=== PATIENT | female | born 1995 | race Caucasian/White ===

== ENCOUNTER 2017-05-15 19:11 | Emergency (ER) | payer OTHER ==
--- NOTE | 2017-05-15 20:29 | ER Document Report ---
ED Medical Screen (RME) - General Chief Complaint: Low Back Pain Stated Complaint: LOW RIGHT BACK PAIN Time Seen by Provider: 05/15/17 20:26 Mode of Arrival: Ambulatory Information source: Patient Notes: 22 yo female presents to ed for right lower back pain started yesterday and worse today. Gets a lot of UTIs and is worried about this, LMP 04/18/17. Was positive for chlamydia on may 03 took antibiotics azithromycin 1000mg. discharge never went away. I have greeted and performed a rapid initial assessment of this patient. A comprehensive ED assessment and evaluation of the patient, analysis of test results and completion of medical decision making process will be conducted by an additional ED providers. - Related Data Allergies/Adverse Reactions: No Known Allergies Allergy (Unverified 05/15/17 19:15)
[2017-05-15 21:31] LABS: APPEARANCE,URINE CLEAR; BILIRUBIN,URINE NEGATIVE (NEGATIVE); COLOR,URINE YELLOW; GLUCOSE, URINE NEGATIVE (NEGATIVE); KETONES,URINE NEGATIVE (NEGATIVE); LEUKOCYTE ESTERASE,URINE NEGATIVE (NEGATIVE); NITRITE,URINE NEGATIVE (NEGATIVE); PROTEIN,URINE NEGATIVE (NEGATIVE); URINE SPECIFIC GRAVITY 1.016; UROBILINOGEN,URINE NEGATIVE mg/dL (<2.0)
[2017-05-15 22:33] LABS: CHLAM PCR DETECTED (NOT DETECT); GON PCR NOT DETECTED (NOT DETECT)
[2017-05-15] MEDS ORDERED: LIDOCAINE 1% INJ-PF (10 MG/ML) 30 ML SDV INFIL ONE (23:32)
[2017-05-15] MEDS ORDERED: AZITHROMYCIN 250 MG TABLET PO ONE (23:32)
[2017-05-15] MEDS ORDERED: CEFTRIAXONE INJ 250 MG VIAL IM ONE (23:32)
[2017-05-15] MEDS ORDERED: IBUPROFEN 600 MG TABLET PO ONE (23:35)
[2017-05-15] MEDS ORDERED: LIDOCAINE 5% (700 MG) TRANSDERMAL ADH..PATCH TP ONE (23:35)
[2017-05-15] MEDS ORDERED: ACETAMINOPHEN 325 MG TABLET PO ONE (23:35)
--- NOTE | 2017-05-15 23:35 | ER Document Report ---
ED General - General Chief Complaint: Low Back Pain Stated Complaint: LOW RIGHT BACK PAIN Time Seen by Provider: 05/15/17 20:26 Mode of Arrival: Ambulatory Notes: Patient is a 22-year-old female with a past medical history of pyelonephritis who presents with 24 hours of right-sided flank pain. She describes this as a dull, constant throbbing pain to her right flank. No radiation of the pain. She has been trying [id number] pain medications without any improvement. Nothing worsens the pain. She states this feels similar to when she has had kidney infections in the past. She has not seen her primary doctor regarding today's concerns. She denies any fever or constitutional symptoms. No pleuritic pain or shortness of breath. No use of supplemental estrogen or control pills. She denies any history of DVT or pulmonary embolus. - Related Data Allergies/Adverse Reactions: No Known Allergies Allergy (Unverified 05/15/17 19:15) Past Medical History - General Information source: Patient - Social History Smoking Status: Never Smoker Chew tobacco use (# tins/day): No Frequency of alcohol use: None Drug Abuse: None Lives with: Spouse/Significant other Family History: Reviewed & Not Pertinent Patient has suicidal ideation: No Patient has homicidal ideation: No Renal/ Medical History: Denies: Hx Peritoneal Dialysis Review of Systems - Review of Systems Notes: Constitutional: Negative for fever. HENT: Negative for sore throat. Eyes: Negative for visual changes. Cardiovascular: Negative for chest pain. Respiratory: Negative for shortness of breath. Gastrointestinal: Positive for right flank pain Genitourinary: Positive for dysuria. Musculoskeletal: Negative for back pain. Skin: Negative for rash. Neurological: Negative for headaches, weakness or numbness. 10 point ROS negative except as marked above and in HPI. Physical Exam - Vital signs Vitals: Temp Pulse BP Pulse Ox 98.8 F 79 118/74 98 05/15/17 19:17 05/15/17 19:17 05/15/17 19:17 05/15/17 19:17 Interpretation: Normal Notes: PHYSICAL EXAMINATION: GENERAL: Well-appearing, well-nourished and in no acute distress. HEAD: Atraumatic, normocephalic. EYES: Pupils equal round and reactive to light, extraocular movements intact, sclera anicteric, conjunctiva are normal. ENT: nares patent, oropharynx clear without exudates. Moist mucous membranes. NECK: Normal range of motion, supple without lymphadenopathy LUNGS: Breath sounds clear to auscultation bilaterally and equal. No wheezes rales or rhonchi. HEART: Regular rate and rhythm without murmurs ABDOMEN: Soft, nontender, normoactive bowel sounds. No guarding, no rebound. Mild right CVA tenderness to palpation EXTREMITIES: Normal range of motion, no pitting or edema. No cyanosis. NEUROLOGICAL: No focal neurological deficits. Moves all extremities spontaneously and on command. PSYCH: Playing on her cell phone, appears in no distress SKIN: Warm, Dry, normal turgor, no rashes or lesions noted. Course - Re-evaluation Re-evalutation: 05/15/17 23:34 Presentation is most consistent with acute pyelonephritis. Urinalysis is consistent with urinary tract infection. CVA tenderness is present on exam. I do not suspect an acute appendicitis, biliary pathology, pancreatitis, intra- abdominal abscess, or tubo-ovarian abscess based on history and examination. I do not suspect an acute pulmonary embolus as patient denies any shortness of breath or pleuritic pain and is PERC criteria negative. Patient does continue to test positive for chlamydia and I have encouraged abstinence until both her and her have been treated and cleared of the infection. She has received ceftriaxone IM as well as azithromycin here in the emergency department. She will be sent home on a seven-day course of cephalexin. Patient is able to tolerate oral intake without difficulty. At this time will discharge with return precautions and follow-up recommendations. Verbal discharge instructions given a the bedside and opportunity for questions given. Medication warnings reviewed. Patient is in agreement with this plan and has verbalized understanding of return precautions and the need for primary care follow-up in the next 24-72 hours. - Vital Signs Vital signs: Temp Pulse Resp BP Pulse Ox 98.5 F 89 127/76 H 97 05/15/17 23:41 05/15/17 23:41 05/15/17 23:41 05/15/17 23:41 - Laboratory Laboratory results interpreted by me: 05/15/17 20:40 Chlamydia DNA (PCR) DETECTED H Discharge - Discharge Clinical Impression: Right flank pain, Pyelonephritis, Chlamydia Condition: Good Disposition: HOME, SELF-CARE Additional Instructions: You have been diagnosed with a condition called pyelonephritis which is an infection involving your kidneys and bladder. You have been given a dose of antibiotics here in the emergency department to help begin to treat this infection. Your also being sent home on antibiotics. Please start taking these later on today when you fill the prescription. Complete the course even if you feel better. Please return if you have persistent vomiting, pass out, have worsening pain, become unable to tolerate fluids, or have any other symptoms that are concerning to you. Please follow-up with your primary care physician in the next 24-48 hours. You need to use protection every time you have sex. Failure to do so can result in transmission of infections or unintended . You have been treated for an sexually transmitted infection (STI) today. All of your partners should be tested and treated as they are also likely to be infected. Please return if you develop abdominal pain, fever, persistent vomiting, or any other symptoms that are concerning to you. Prescriptions: Cephalexin Monohydrate [Keflex 500 mg Capsule] 500 mg PO Q6H 7 Days capsule Referrals: SATHYA WARD MD [Primary Care Provider] - Follow up as needed
[2017-05-15 23:42] VITALS: BP 127/76
== END 2017-05-16 00:22 | disposition home or self-care (01) ==
LOC: ER 19:11
DX: N12 Tubulo-interstitial nephritis, not specified as acute or chronic (principal); A74.9 Chlamydial infection, unspecified; R10.9 Unspecified abdominal pain; M54.5 Low back pain; R30.0 Dysuria
CPT/HCPCS: 99284; 96372; 36415; 87086; 81025; 87088; 81001; 87186; 87491; 87591; J3490; J0696

== ENCOUNTER 2017-06-20 21:13 | Emergency (ER) | payer OTHER ==
[2017-06-20 22:17] LABS: APPEARANCE,URINE SLIGHTLY-CLOUDY; BILIRUBIN,URINE NEGATIVE (NEGATIVE); COLOR,URINE YELLOW; GLUCOSE, URINE NEGATIVE (NEGATIVE); KETONES,URINE NEGATIVE (NEGATIVE); LEUKOCYTE ESTERASE,URINE NEGATIVE (NEGATIVE); NITRITE,URINE NEGATIVE (NEGATIVE); PROTEIN,URINE NEGATIVE (NEGATIVE); UROBILINOGEN,URINE NEGATIVE mg/dL (<2.0)
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
[2017-06-20 23:35] LABS: CHLAM PCR NOT DETECTED (NOT DETECT); GON PCR NOT DETECTED (NOT DETECT)
[2017-06-20 23:44] LABS: RBCS (WET MOUNT) RARE RBCS SEEN; T.VAGINALIS (WET MOUNT) NO TRICHOMONAS SEEN; WBCS (WET MOUNT) RARE WBCS SEEN; YEAST (WET MOUNT) NO YEAST SEEN
[2017-06-21 01:37] VITALS: BP 107/76
--- NOTE | 2017-06-21 01:52 | RADIOLOGY REPORT (SQ) ---
EXAM DESCRIPTION: U/S OB TRANSVAG W/DOPPLER CLINICAL HISTORY: 22 years, Female, pain, positive COMPARISON: None. TECHNIQUE: Transvaginal LIMITATIONS: None. FINDINGS: No intrauterine gestation identified. 8 cm uterus, 2.5 cm cervical length, 2.1 cm thickness of the endometrial stripe, Nabothian cysts. 3.1 cm right ovary, 3.7 cm left ovary, likely 1.4 cm dominant follicle or corpus luteum of the left ovary appear of normal size, shape, echotexture, and vascularity. No significant free fluid. IMPRESSION: No intrauterine gestation identified. Differential diagnosis includes occult early viable gestation, gestational loss, and occult ectopic gestation. Recommend 48 to 72 hour laboratory/sonographic surveillance.
== END 2017-06-21 01:40 | disposition home or self-care (01) ==
LOC: ER 21:13
DX: Z34.01 Encounter for supervision of normal first pregnancy, first trimester (principal); N89.8 Other specified noninflammatory disorders of vagina
CPT/HCPCS: 36415; 76817; 81001; 81025; 84702; 84703; 87210; 87491; 87591; 93976; 99284

== ENCOUNTER 2019-04-11 05:57 | Emergency (ER) | payer OTHER ==
[2019-04-11 08:47] LABS: ABSOLUTE EOSINOPHILS # (AUTO) 0.1 10^3/uL (0.0-0.6); ABSOLUTE LYMPHOCYTES (AUTO) 2.6 10^3/uL (0.5-4.7); ABSOLUTE MONOCYTES (AUTO) 0.4 10^3/uL (0.1-1.4); ABSOLUTE NEUT (AUTO) 2.1 10^3/uL (1.7-8.2); BASOPHILS % (AUTO) 0.9 % (0-2); EOSINOPHILS % (AUTO) 1.9 % (0-6); HEMATOCRIT 36.9 % (36.0-47.0); HEMOGLOBIN 12.8 g/dL (12.0-15.5); LYMPHOCYTES % (AUTO) 50.3 % (13-45); MEAN CORPUSCULAR HEMOGLOBIN 29.6 pg (27.0-33.4); MEAN CORPUSCULAR HGB CONC 34.6 g/dL (32.0-36.0); MEAN CORPUSCULAR VOLUME 86 fl (80-97); MONOCYTES % (AUTO) 7.2 % (3-13); PLATELET COUNT 325 10^3/uL (150-450); RED BLOOD COUNT 4.31 10^6/uL (3.72-5.28); RED CELL DISTRIBUTION WIDTH 12.1 % (11.5-14.0); SEGMENTED NEUTROPHILS % (AUTO) 39.7 % (42-78); TOTAL CELLS COUNTED % (AUTO) 100 %; WHITE BLOOD COUNT 5.2 10^3/uL (4.0-10.5)
[2019-04-11 09:09] LABS: ALBUMIN 4.9 g/dL (3.5-5.0); ALKALINE PHOSPHATASE 77 U/L (38-126); ANION GAP 14 (5-19); ASPARTATE AMINO TRANSFERASE 19 U/L (14-36); BILIRUBIN,DIRECT 0.3 mg/dL (0.0-0.4); BILIRUBIN,TOTAL 0.3 mg/dL (0.2-1.3); BLOOD UREA NITROGEN 16 mg/dL (7-20); CALCIUM 9.8 mg/dL (8.4-10.2); CARBON DIOXIDE 26 mmol/L (22-30); CHLORIDE 103 mmol/L (98-107); GLUCOSE 111 mg/dL (75-110); POTASSIUM 3.7 mmol/L (3.6-5.0); TOTAL PROTEIN 8.3 g/dL (6.3-8.2)
[2019-04-11 09:21] LABS: INTERNATIONAL RATION (INR) 0.99
[2019-04-11 09:28] LABS: APPEARANCE,URINE SLIGHTLY-CLOUDY; BILIRUBIN,URINE NEGATIVE (NEGATIVE); COLOR,URINE YELLOW; GLUCOSE, URINE NEGATIVE (NEGATIVE); KETONES,URINE NEGATIVE (NEGATIVE); LEUKOCYTE ESTERASE,URINE NEGATIVE (NEGATIVE); NITRITE,URINE NEGATIVE (NEGATIVE); PROTEIN,URINE NEGATIVE (NEGATIVE); URINE SPECIFIC GRAVITY 1.027; UROBILINOGEN,URINE NEGATIVE mg/dL (<2.0)
[2019-04-11 09:34] LABS: D-DIMER < 0.27 ug/mL (0.00-0.50)
[2019-04-11] MEDS ORDERED: NORMAL SALINE 1000 ML 1,000 ML IV ONE (11:01)
[2019-04-11] MEDS ORDERED: PROCHLORPERAZINE EDISYLATE INJ 10 MG/2 ML VIAL IV ONE (11:01)
[2019-04-11] MEDS ORDERED: KETOROLAC TROMETHAMINE INJ/PF 30 MG/1 ML SDV IV ONE (11:01)
[2019-04-11] MEDS ORDERED: DIPHENHYDRAMINE HCL 50 MG/ML VIAL IV ONE (11:01)
--- NOTE | 2019-04-11 11:56 | ER Document Report ---
HPI - HPI Patient complains to provider of: Body aches, headache Time Seen by Provider: 04/11/19 10:44 Quality of pain: Achy Pain Level: 4 Context: Patient presents complaining of body aches off and on for the past 3 months. Patient states that presently her body aches have resolved. Patient complains of headache pain to the bilateral temporal area for the past 2 weeks. Patient states that headache pain will come and go although the headache is present at this time. Patient denies any fever nausea or vomiting. Associated Symptoms: Body/muscle aches, Headache. denies: Chest pain, Non productive cough, Productive cough, Fever Exacerbated by: Denies Relieved by: Denies Similar symptoms previously: Yes Recently seen / treated by doctor: No - ROS ROS below otherwise negative: Yes Systems Reviewed and Negative: Yes All other systems reviewed and negative - CONSTITUTIONAL Constitutional: DENIES: Fever - EENT EENT: DENIES: Sore Throat, Ear Pain, Eye problems - NEURO Neurology: REPORTS: Headache. DENIES: Weakness, Vision blurred, Dizzinesss / Vertigo - CARDIOVASCULAR Cardiovascular: DENIES: Chest pain - RESPIRATORY Respiratory: DENIES: Trouble Breathing, Coughing - GASTROINTESTINAL Gastrointestinal: DENIES: Abdominal Pain, Patient vomiting - URINARY Urinary: DENIES: Dysuria, Urgency - REPRODUCTIVE Reproductive: DENIES: : - MUSCULOSKELETAL Musculoskeletal: REPORTS: Extremity pain - Generalized body aches. DENIES: Neck Pain - DERM Skin Color: Normal Skin Problems: None Past Medical History - General Information source: Patient - Social History Smoking Status: Never Smoker Frequency of alcohol use: None Drug Abuse: None Occupation: None Lives with: Family Family History: Reviewed & Not Pertinent Patient has suicidal ideation: No Patient has homicidal ideation: No - Medical History Medical History: Negative Renal/ Medical History: Denies: Hx Peritoneal Dialysis Past Surgical History: Reports: Hx Section Vertical Provider Document - CONSTITUTIONAL Agree With Documented VS: Yes Exam Limitations: No Limitations General Appearance: WD/WN, No Apparent Distress - INFECTION CONTROL TRAVEL OUTSIDE OF THE [place] IN LAST 30 DAYS: No - HEENT HEENT: Atraumatic, Normocephalic - NECK Neck: Normal Inspection, Supple. negative: Lymphadenopathy-Left, Lymphadenopathy-Right Notes: No meningismus - RESPIRATORY Respiratory: Breath Sounds Normal, No Respiratory Distress - CARDIOVASCULAR Cardiovascular: Regular Rate, Regular Rhythm, No Murmur - GI/ABDOMEN Gastrointestinal: Abdomen Soft - BACK Back: Normal Inspection. negative: CVA Tenderness-Right, CVA Tenderness-Left - MUSCULOSKELETAL/EXTREMETIES Musculoskeletal/Extremeties: MAEW, FROM, Non-Tender - NEURO Level of Consciousness: Awake, Alert, Appropriate Motor/Sensory: No Motor Deficit - DERM Integumentary: Warm, Dry, No Rash Course - Re-evaluation Re-evalutation: 04/11/19 11:50 Patient reports that headache pain is resolved at this time. Patient continues to deny any myalgia at this time. Patient does report feeling restless after the Compazine. Patient advised to list this as an adverse reaction in the future. Patient encouraged to follow-up with her primary doctor she may need additional evaluation to rule out any rheumatologic disorder. Patient otherwise nontoxic in appearance. No elevation in d-dimer, no liver function test abnormality. The patient presents with headache without signs of [employer] bleed, stroke, infection, or other serious etiology. The patient is neurologically intact. Given the extremely low risk of these diagnoses further testing and evaluation for these possibilities does not appear to be indicated at this time. The patient has been instructed to return if the symptoms worsen or change in any way. - Vital Signs Vital signs: Temp Pulse Resp BP Pulse Ox 98.2 F 56 L 18 111/65 100 04/11/19 10:32 04/11/19 10:32 04/11/19 06:06 04/11/19 10:32 04/11/19 10:32 - Laboratory Result Diagrams: 04/11/19 08:38 04/11/19 08:38 Laboratory results interpreted by me: 04/11/19 04/11/19 04/11/19 08:38 08:38 08:45 Lymph % (Auto) 50.3 H Seg Neutrophils % 39.7 L Glucose 111 H Total Protein 8.3 H Urine Blood MODERATE H 04/11/19 11:51 Labs- Entire Visit 04/11/19 04/11/19 04/11/19 08:38 08:38 08:38 WBC 5.2 RBC 4.31 Hgb 12.8 Hct 36.9 MCV 86 MCH 29.6 MCHC 34.6 RDW 12.1 Plt Count 325 Lymph % (Auto) 50.3 H Humphreys % (Auto) 7.2 Eos % (Auto) 1.9 Baso % (Auto) 0.9 Absolute Neuts (auto) 2.1 Absolute Lymphs (auto) 2.6 Absolute Monos (auto) 0.4 Absolute Eos (auto) 0.1 Absolute Basos (auto) 0.0 Seg Neutrophils % 39.7 L PT 13.0 INR 0.99 D-Dimer < 0.27 Sodium 142.7 Potassium 3.7 Chloride 103 Carbon Dioxide 26 Anion Gap 14 BUN 16 Creatinine 0.63 Est GFR ( Amer) > 60 Est GFR (MDRD) Non-Af > 60 Glucose 111 H Calcium 9.8 Total Bilirubin 0.3 Direct Bilirubin 0.3 Neonat Total Bilirubin Not Reportable Neonat Direct Bilirubin Not Reportable Neonat Indirect Bili Not Reportable AST 19 ALT 11 Alkaline Phosphatase 77 Total Protein 8.3 H Albumin 4.9 Serum HCG, Qual Urine Color Urine Appearance Urine pH Ur Specific Haslett Urine Protein Urine Glucose (UA) Urine Ketones Urine Blood Urine Nitrite Urine Bilirubin Urine Urobilinogen Ur Leukocyte Esterase Urine WBC (Auto) Urine RBC (Auto) Squamous Epi Cells Auto Urine Mucus (Auto) Urine Ascorbic Acid 04/11/19 04/11/19 08:38 08:45 WBC RBC Hgb Hct MCV MCH MCHC RDW Plt Count Lymph % (Auto) Humphreys % (Auto) Eos % (Auto) Baso % (Auto) Absolute Neuts (auto) Absolute Lymphs (auto) Absolute Monos (auto) Absolute Eos (auto) Absolute Basos (auto) Seg Neutrophils % PT INR D-Dimer Sodium Potassium Chloride Carbon Dioxide Anion Gap BUN Creatinine Est GFR ( Amer) Est GFR (MDRD) Non-Af Glucose Calcium Total Bilirubin Direct Bilirubin Neonat Total Bilirubin Neonat Direct Bilirubin Neonat Indirect Bili AST ALT Alkaline Phosphatase Total Protein Albumin Serum HCG, Qual NEGATIVE Urine Color YELLOW Urine Appearance SLIGHTLY-CLOUDY Urine pH 6.0 Ur Specific Haslett 1.027 Urine Protein NEGATIVE Urine Glucose (UA) NEGATIVE Urine Ketones NEGATIVE Urine Blood MODERATE H Urine Nitrite NEGATIVE Urine Bilirubin NEGATIVE Urine Urobilinogen NEGATIVE Ur Leukocyte Esterase NEGATIVE Urine WBC (Auto) 3 Urine RBC (Auto) 3 Squamous Epi Cells Auto 1 Urine Mucus (Auto) MANY Urine Ascorbic Acid NEGATIVE Discharge - Discharge Clinical Impression: Myalgia Headache Qualifiers: Headache type: unspecified Headache chronicity pattern: episodic headache Intractability: not intractable Qualified Code(s): R51 - Headache Condition: Stable Disposition: HOME, SELF-CARE Instructions: Intravenous Compazine for Headaches ([facility]), Headache ([facility]), Myalagia (Muscle Pain) ([facility]), Toradol Injection ([facility]) Additional Instructions: Return immediately for any new or worsening symptoms Followup with your primary care provider, call tomorrow to make a followup appointment Prescriptions: Butalb/Acetaminophen/Caffeine [Fioricet (50-325-40 mg) Tablet] 1 - 2 tab PO Q4H PRN #15 each PRN Reason: Referrals: STEWART MILLER PA-C [Primary Care Provider] - Follow up as needed
[2019-04-11 12:18] VITALS: BP 106/65
== END 2019-04-11 12:20 | disposition home or self-care (01) ==
LOC: ER 05:57
DX: R51 Headache (principal); M79.10 Myalgia, unspecified site
CPT/HCPCS: 36415; 80053; 81001; 84703; 85025; 85379; 85610; 96361; 96374; 96375; 99283; J0780; J1200; J1885; J7030